=== PATIENT | female | born 1955 | race Caucasian/White ===

== ENCOUNTER 2020-01-11 10:49 | Emergency (ER) | payer MEDICARE, OTHER ==
--- NOTE | 2020-01-11 11:02 | ED.PDOC ---
History of Present Illness - General Chief Complaint: Upper Extremity Injury Stated Complaint: right wrist pain after fall yesterday Time Seen by Provider: 01/11/20 10:59 Source: patient Exam Limitations: no limitations Additional Information: The patient is a 65 year old with no significant past medical history who presents to the ED complaining of right wrist pain. She was moving boards ye sterday when she lost her balance and fell backward onto her right wrist. She states that she has been having pain since that time although she is able to use it some. She denies weakness, numbness, tingling. She did not hit her head. No other complaints of injury at this time. - History of Present Illness Allergies/Adverse Reactions: Allergies Adenosine Adverse Reaction (Verified 01/11/20 11:04) Cefuroxime [From Ceftin] Adverse Reaction (Verified 01/11/20 11:04) Review of Systems - Review of Systems Constitutional: States: no symptoms reported EENTM: States: no symptoms reported Respiratory: States: no symptoms reported Cardiology: States: no symptoms reported Gastrointestinal/Abdominal: States: no symptoms reported Genitourinary: States: no symptoms reported Musculoskeletal: States: joint pain, joint swelling Skin: States: no symptoms reported Neurological: Denies: numbness, paresthesia, tingling Endocrine: States: no symptoms reported Hematologic/Lymphatic: States: no symptoms reported All other Systems: No Change from Baseline Family Medical History - Family History Mother Family History: No Known Living Status: Physical Exam - Physical Exam General Appearance: Comfortable, No apparent distress Cardiovascular/Respiratory: no respiratory distress Elbow/Forearm Exam: normal inspection, non-tender, no evidence of injury, normal ROM Wrist Exam: pain, soft tissue tenderness, swelling - Normal ROM, 2+ pulses, <2s cap refill. Ecchymosis on volar aspect. No snuff box tenderness. Hand Exam: normal inspection, non-tender, no evidence of injury, normal ROM Neuro/Tendon: normal sensation, normal motor functions, normal tendon functions, no evidence tendon injury Mental Status: alert, oriented x 3 Skin Exam: normal color, warm/dry Progress - Progress Progress: 01/11/20 11:33 Patient updated on radiographic findings. Will place sugar tong splint and refer for orthopedic follow up. - EKG/XRAY/CT XRAY: Wrist (R) Xray Comments: Acute non-displaced fracture of the articular surface of the distal radius Procedures - Splinting Right Wrist Hand-Made Type: orthoglass Splint: sugar-tong Pre-Proc Neuro Vasc Exam: normal Post-Proc Neuro Vasc Exam: normal Departure - Departure Clinical Impression: Distal radius fracture Qualifiers: Encounter type: initial encounter Fracture type: closed Fracture morphology: other intra-articular Laterality: right Qualified Code(s): S52.571A - Other intraarticular fracture of lower end of right radius, initial encounter for closed fracture Time of Disposition: 11:34 Disposition: Discharge to Home or Self Care Condition: Fair Departure Forms: ED Discharge - Pt. Copy, Patient Portal Self Enrollment Instructions: DI for Arm Pain, Radius Fracture (DC) Diet: resume usual diet Activity: increase activity as tolerated Referrals: Greg Shah MD [Active Staff] - 1-2 Weeks
[2020-01-11 11:04] VITALS: O2SAT 96
--- NOTE | 2020-01-11 11:25 | RAD ---
EXAM DESCRIPTION: Wrist,Right 3 Views CLINICAL HISTORY: 65 years, Female, fall, pain COMPARISON: None available TECHNIQUE: Frontal, lateral, and oblique views of the Right wrist was obtained. FINDINGS/IMPRESSION: Images of the Right wrist demonstrate an acute nondisplaced intra-articular fracture of the distal radius (along the dorsal lip). The osseous alignment is otherwise intact without joint dislocation. Overlying soft tissue swelling surrounds the wrist. 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 Electronically signed by: Reynaldo Benson DO 01/11/2020 11:23 AM CDT
[2020-01-11 12:06] VITALS: BP 142/87; TEMP 97.4
== END 2020-01-11 12:00 | disposition home or self-care (01) ==
LOC: ER 10:49
DX: S52.571A Other intraarticular fracture of lower end of right radius, initial encounter for closed fracture (principal); W19.XXXA Unspecified fall, initial encounter; Y92.9 Unspecified place or not applicable

== ENCOUNTER 2020-01-14 | Emergency (ER) | payer MEDICARE, OTHER ==
--- NOTE | 2020-01-14 12:06 | ED.PDOC ---
History of Present Illness - General Chief Complaint: Eye Problems Stated Complaint: left eye blood shot Time Seen by Provider: 01/14/20 12:04 Source: patient, RN notes reviewed, Vital Signs reviewed, family Exam Limitations: no limitations - History of Present Illness Initial Comments: This is a 65-year-old female presenting to the emergency room with redness to the left eye that she noticed earlier today. She denies any recent trauma to the eye. She did have a fall approximately 1 week ago and has a fracture in the right forearm. She denies any recent coughing, straining with bowel movements, and does not take any blood thinners. She denies any changes in her vision or eye pain. Allergies/Adverse Reactions: Allergies Adenosine Adverse Reaction (Verified 01/11/20 11:04) Cefuroxime [From Ceftin] Adverse Reaction (Verified 01/11/20 11:04) Review of Systems - Review of Systems Constitutional: Denies: chills, fever EENTM: States: see HPI. Denies: eye pain, blurred vision, nose pain, nose congestion, mouth pain Respiratory: Denies: cough, short of breath Past Medical History (General) - Patient Medical History Hx of COPD: No Hx Cardiac Disorders: No Hx Hypertension: No Hx Diabetes: No Hx Cancer: No Hx Hepatitis C: No - Vaccination History Hx Tetanus, Diphtheria Vaccination: No Hx Influenza Vaccination: Yes Hx Pneumococcal Vaccination: Yes - Social History Hx Tobacco Use: No Hx Alcohol Use: No Hx Substance Use: No Hx Substance Use Treatment: No Hx Depression: No Family Medical History - Family History Mother Family History: No Known Living Status: Physical Exam - Physical Exam General Appearance: Alert, Comfortable Eye Exam: left other - Left subconjunctival hemorrhage, no hyphema Nasal Exam: normal inspection Throat Exam: normal mouth inspection Neck: non-tender, full range of motion Cardiovascular/Respiratory: regular rate, rhythm, no M/R/G, normal peripheral pulses Abdominal Exam: non-tender Neurologic: no motor/sensory deficits, alert, normal mood/affect, oriented x 3 Skin Exam: normal color, warm/dry Comments: Right forearm in splint, cap refill less than 2-second Progress - Progress Progress: MDM: Subconjunctival hemorrhage, no clear trauma. It does not affect her vision, no hyphema, no thinners. No indication for ophthalmology evaluation at this time. Recommended close observation, follow-up with PCP as needed. Return to the emergency room for worsening, changes in vision, eye pain, or any other concern Vince aHwkins DO [id number] Departure - Departure Clinical Impression: Subconjunctival hemorrhage Qualifiers: Laterality: left Qualified Code(s): H11.32 - Conjunctival hemorrhage, left eye Disposition: Discharge to Home or Self Care Condition: Good Departure Forms: ED Discharge - Pt. Copy, Patient Portal Self Enrollment Instructions: Subconjunctival Hemorrhage Additional Instructions: Return to the emergency room for eye pain, changes in vision, severe headaches, or any other concerns.
== END 2020-01-14 12:21 | disposition home or self-care (01) ==
DX: H11.32 Conjunctival hemorrhage, left eye (principal)